=== PATIENT | female | born 1945 | race Two or more races ===

== ENCOUNTER → 2018-12-05 | Outpatient (CLI) | payer OTHER, SELFPAY ==
--- NOTE | 2018-12-05 17:11 | REP ---
A bilateral knee series: 10 views. History: Bilateral knee pain. Findings: There is diffuse osteopenia. There is advanced three compartment osteoarthritis bilaterally. On the left, there is a osteocartilaginous body projecting in the region of the suprapatellar bursa 2.2 cm in greatest diameter consistent with a loose body. On the right, there is a possible osteocartilaginous loose body at the posterior joint line. This measures 1.7 cm in diameter. Impression: Advanced bilateral three compartment osteoarthritis. Probable bilateral large osteocartilaginous loose bodies, 1 on each side as described above. Electronically Signed by Jad Mclaughlin MD 12/05/2018 05:03 P
--- NOTE | 2018-12-05 18:38 | REP ---
HISTORY: Shoulder pain. No trauma. COMPARISON: No priors. Moderate to severe hypertrophic degenerative changes seen involving the acromioclavicular joint which is mildly asymmetrically narrowed and seen with marginal osteophytosis. There is a spur arising from the inferior surface of the acromion process at the level of the AC joint projecting into the subacromial space. The glenohumeral relationship is within normal limits. There is no acute fracture, dislocation or subluxation. IMPRESSION: Chronic changes as described above. Electronically Signed by Alec Ruiz DO 12/05/2018 07:41 P
== END ==
LOC: M RAD 16:17
DX: M19.011 Primary osteoarthritis, right shoulder (principal); M17.11 Unilateral primary osteoarthritis, right knee

== ENCOUNTER → 2019-01-01 | Outpatient (REF) | payer MEDICAID, OTHER, SELFPAY ==
[2019-01-01 17:35] LABS: CALCIUM LEVEL 9.1 MG/DL (8.8-10.2); CREATININE FOR GFR 1.06 MG/DL (0.55-1.30); GLOMERULAR FILTRATION RATE 54.4 (>39); POTASSIUM SERUM 3.8 MEQ/L (3.5-5.1)
== END ==
LOC: M SFHCPLAZ 14:51
DX: I10 Essential (primary) hypertension (principal)

== ENCOUNTER → 2019-09-17 | Outpatient (REF) | payer OTHER | LOC: M SFHCPLAZ 15:58 | DX: M25.561 Pain in right knee (principal); Z53.9 Procedure and treatment not carried out, unspecified reason ==

== ENCOUNTER → 2019-09-18 | Outpatient (REF) | payer OTHER ==
[2019-09-18 19:16] LABS: CALCIUM LEVEL 8.8 MG/DL (8.8-10.2); CREATININE FOR GFR 1.17 MG/DL (0.55-1.30); GLOMERULAR FILTRATION RATE 48.4 (>39); POTASSIUM SERUM 4.2 MEQ/L (3.5-5.1)
== END ==
LOC: M SFHCPLAZ 14:29
DX: M25.561 Pain in right knee (principal)

== ENCOUNTER → 2020-10-26 | Outpatient (CLI) | payer OTHER ==
--- NOTE | 2020-10-26 14:13 | REP ---
INDICATION: LOW BACK PAIN. COMPARISON: None. TECHNIQUE: There are five views. FINDINGS: There is demineralization. Vertebral body heights are normally maintained. There is slight concavity of the L2 superior endplate, likely from insufficiency. There is significant narrowing of the L5-S1 joint space compatible with degenerative disc disease. The remainder of the disc spaces are normally maintained. There is mild osteoarthritis of the posterior facets, particularly at the lower lumbar levels. The sacroiliac articulations are unremarkable. IMPRESSION: Demineralization. L5-S1 joint space narrowing compatible with degenerative disc disease. Mild concavity of the L2 superior endplate, likely from insufficiency. Posterior facet osteoarthritis. <Electronically signed by Joseph Monahan > 10/26/20 [id number]
== END ==
LOC: M PLAIMG 10:42
PROVIDERS: ATTEND Physician Assistant
DX: M54.5 Low back pain (principal); M51.26 Other intervertebral disc displacement, lumbar region

== ENCOUNTER → 2020-11-29 | Outpatient (REF) | payer OTHER | LOC: M SFHCPLAZ 11:45 | PROVIDERS: ATTEND Family Medicine | DX: I10 Essential (primary) hypertension (principal) ==

== ENCOUNTER → 2020-11-29 | Outpatient (CLI) | payer OTHER ==
[2020-11-29 15:43] LABS: CALCIUM LEVEL 9.1 MG/DL (8.8-10.2); CREATININE FOR GFR 1.01 MG/DL (0.55-1.30); GLOMERULAR FILTRATION RATE 57.2 (>39); POTASSIUM SERUM 4.5 MEQ/L (3.5-5.1)
== END ==
LOC: M PLALAB 12:00
PROVIDERS: ATTEND Student in an Organized Health Care Education/Training Program
DX: I10 Essential (primary) hypertension (principal)